=== PATIENT | female | born 1940 | race African-American/Black ===

== ENCOUNTER 2019-03-30 15:29 | Emergency (ER) | payer MEDICARE, OTHER ==
[~2019-03-30] VITALS: Ht 160 cm; Wt 78.9 kg
[2019-03-30 15:33] VITALS: BP 135/67
--- NOTE | 2019-03-30 15:43 | NUR ---
ED Nurse Note: PT FROM HOME WALKED IN DUE TO LEFT LOWER BACK PAIN X 2 DAYS. DENIES RECENT INJURY. NO FEVER OR CHILLS. PT STATES THAT SHE HAS NO PROBLEM URINATING OR GOING TO BATHROOM. AAO X4 AND AMBULATORY.
--- NOTE | 2019-03-30 16:22 | NUR ---
ED Nurse Note: PT TAKEN TO CT IN STABLE CONDITION.
--- NOTE | 2019-03-30 16:32 | NUR ---
ED Nurse Note: PT CAME BACK FROM CT AND STABLE.
[2019-03-30 16:37] LABS: APPEARANCE,URINE CLEAR; BILIRUBIN, URINE NEGATIVE (NEGATIVE); COLOR,URINE PALE YELLOW; GLUCOSE, URINE (UA) NEGATIVE (NEGATIVE); KETONES,URINE NEGATIVE (NEGATIVE); LEUKOCYTE ESTERASE ,URINE NEGATIVE (NEGATIVE); NITRITE,URINE NEGATIVE (NEGATIVE); PH,URINE 5 (4.5-8.0); PROTEIN,URINE NEGATIVE (NEGATIVE); UROBILINOGEN,URINE NORMAL MG/DL (0.0-1.0)
[2019-03-30 17:32] VITALS: BP 129/72
[2019-03-30] MEDS ORDERED: LIDODERM700 M1 TOPIC (17:36)
--- NOTE | 2019-03-30 17:38 | Emergency Room Report ---
History of Present Illness General Chief Complaint: Pain Source: Patient Present Illness HPI Patient is a 78-year-old female presents after increased left-sided back pain. Pain is gradually worsened. Patient been taking ibuprofen without improvement. Prior history of diabetes. Denies any urinary symptoms. Denies any vomiting or diarrhea. Allergies: Coded Allergies: No Known Allergies (Unverified , 03/30/19) Patient History Reviewed Nursing Documentation: PMH: Agreed; PSxH: Agreed Nursing Documentation-PMH Past Medical History: No History, Except For Hx Cardiac Problems: No - HLD Hx Hypertension: Yes Review of Systems All Other Systems: negative except mentioned in HPI Physical Exam Vital Signs Date Time Temp Pulse Resp B/P (MAP) Pulse Ox O2 Delivery O2 Flow Rate FiO2 03/30/19 15:33 97.9 82 19 135/67 (89) 97 Room Air Sp02 EP Interpretation: reviewed, normal General Appearance: normal inspection, well appearing, no apparent distress, alert, GCS 15 Head: atraumatic Eyes: bilateral eye other - left eye with opacification\ ENT: normal ENT inspection, hearing grossly normal, normal voice Neck: normal inspection, full range of motion, supple, no bony tend, tender midline Respiratory: normal inspection, lungs clear, normal breath sounds, no respiratory distress, no retraction, no wheezing Cardiovascular #1: regular rate, rhythm, no edema Gastrointestinal: normal inspection, normal bowel sounds, non tender, soft, no guarding, no hernia Genitourinary: no CVA tenderness Musculoskeletal: normal inspection, back normal, normal range of motion Neurologic: alert, motor strength/tone normal, wirer III-XII nml as tested, oriented x3, responsive, speech normal, normal inspection Psychiatric: normal inspection, judgement/insight normal, mood/affect normal Medical Decision Making Diagnostic Impression: Primary Impression: Sacral pain ER Course Patient presented for left-sided low back pain. Differential diagnosis included but was not limited to herniated disc, cauda equina syndrome, abdominal aortic aneurysm, perforated ulcer, spinal epidural abscess, spinal stenosis,sacral fracture, metastatic lesion, pyelonephritis. Urinalysis showed no evidence of infection. Patient's pain appears to be musculoskeletal. Pelvic CT showed no evidence of acute pathology. Does not show any signs of incontinence or urinary retention. Patient was given prescription for symptomatic treatment. Patient was advised to recheck with primary care physician in 1-2 days. Patient to return for any worsening, pain, fever, incontinence or other concerns. Last Vital Signs Date Time Temp Pulse Resp B/P (MAP) Pulse Ox O2 Delivery O2 Flow Rate FiO2 03/30/19 15:33 97.9 82 19 135/67 97 Room Air Status: improved Disposition: HOME, SELF-CARE Condition: Stable Scripts Lidocaine Patch* (Lidoderm Patch*) 1 Each Adh..patch 1 PATCH TOPIC DAILY, #30 PATCH Patch(es) may remain in place for up to 12 hours in any 24-hour period. Prov: Koby Tran MD 03/30/19 Patient Instructions: Back Pain, Adult Koby Tran MD Mar 30, 2019 17:38
--- NOTE | 2019-03-30 18:26 | Diagnostic Imaging Report ---
EXAM: CT Pelvis Without Intravenous Contrast CLINICAL HISTORY: PAIN TECHNIQUE: Axial computed tomography images of the pelvis without intravenous contrast. CTDI is 36.8 mGy and DLP is 1370.4 mGy-cm. One or more of the following dose reduction techniques were used: automated exposure control, adjustment of the mA and/or kV according to patient size, use of iterative reconstruction technique. COMPARISON: No relevant prior studies available. FINDINGS: Bowel: Colonic diverticula. Bladder: Unremarkable. Reproductive: Unremarkable. Bones/joints: No acute fracture. Soft tissues: Subcutaneous edema in the back Vasculature: Unremarkable. No lower abdominal aortic aneurysm. Lymph nodes: No enlarged lymph nodes. IMPRESSION: No acute fracture.
[2019-03-30 18:57] VITALS: BP 125/84
--- NOTE | 2019-03-30 18:57 | NUR ---
ER DISCHARGE NOTE: Patient is cleared to be discharged per ERMD, pt is aox4, on room air, with stable vital signs. pt was given dc and prescription instructions, pt was able to verbalize understanding, pt id band removed. pt is able to ambulate with steady gait. pt took all belongings and left with her friend.
== END 2019-03-30 18:57 | disposition home or self-care (01) ==
LOC: EMR 16:52
DX: K62.89 Other specified diseases of anus and rectum (principal); M54.5 Low back pain; I10 Essential (primary) hypertension; E78.5 Hyperlipidemia, unspecified
CPT/HCPCS: 72192; 81003; 99284